=== PATIENT | female | born 1940 ===

== ENCOUNTER 2018-10-24 06:43 | Inpatient (IN) | payer OTHER ==
[2018-10-24] VITALS (15 sets, daily range): BP systolic 97–148; BP diastolic 56–83
[~2018-10-24] VITALS: Ht 162.6 cm; Wt 63.5 kg
[2018-10-24] MEDS ORDERED: ceFAZolin sod 2 GM in D5W 110 ML IVPB ONE (07:00)
[2018-10-24] MEDS ORDERED: Vancomycin 1gm vial IVPB ONE (07:13)
[2018-10-24] MEDS ORDERED: Bacitracin 50000 Units Vial ONE (07:14)
[2018-10-24] MEDS ORDERED: Bupivacaine w/Epi 0.5% 30ml Vial INJ ONE (07:14)
[2018-10-24] MEDS ORDERED: Gelfoam Size TOPIC ONE (07:14)
[2018-10-24] MEDS ORDERED: Thrombin 5000 units TOPIC ONE (07:14)
[2018-10-24] MEDS ORDERED: Metoclopramide 10mg/2ml Inj IVP PRN ×2 (07:15→07:30)
[2018-10-24] MEDS ORDERED: Acetaminophen (Non formulary) 100 ML IV ONE (07:15)
[2018-10-24] MEDS ORDERED: fentaNYL 100 mcg/2 mL IV PRN (07:15)
[2018-10-24] MEDS ORDERED: HYDROcodone/Acetamin 7.5/325 tab ORAL PRN ×3 (07:15→07:30)
[2018-10-24] MEDS ORDERED: Ketorolac 30mg Inj IV PRN ×2 (07:15)
[2018-10-24] MEDS ORDERED: DiphenhydrAMINE 50mg/ml Inj IVP PRN (07:15)
[2018-10-24] MEDS ORDERED: Meperidine 50mg/ml Inj(FOR RIGORS ONLY) IVP PRN (07:15)
[2018-10-24] MEDS ORDERED: Labetalol 5mg/ml 20ml vial IV PRN (07:15)
[2018-10-24] MEDS ORDERED: Atropine Sulfate 0.4mg/ml inj IVP PRN (07:15)
[2018-10-24] MEDS ORDERED: LR 1000ml 1,000 ML IVLG SCH (07:15)
[2018-10-24] MEDS ORDERED: Hydromorphone 0.5mg/0.5ml inj IVP PRN (07:15)
[2018-10-24] MEDS ORDERED: HYDROcodone/Acetamin 5/325 tab ORAL PRN ×2 (07:15→07:30)
[2018-10-24] MEDS ORDERED: LORazepam Inj 2mg/ml 1ml IV PRN (07:15)
[2018-10-24] MEDS ORDERED: oxyCODONE HCL/Acetaminophen 5/325mg ORAL PRN (07:15)
[2018-10-24] MEDS ORDERED: Midazolam 2mg/2ml Inj IVP PRN (07:15)
--- NOTE | 2018-10-24 07:17 | Immediate Post-Op Evaluation ---
Immediate Post-Op Evalulation Immediate Post-Op Evalulation Procedure: ACDF C5-6, C6-7 Date of Evaluation: Oct 24, 2018 Time of Evaluation: 10:17 IV Fluids: 700 Blood Products: 0 Estimated Blood Loss: 30 Urinary Output: 0 Blood Pressure Systolic: 147 Blood Pressure Diastolic: 79 Pulse Rate: 73 Respiratory Rate: 16 O2 Sat by Pulse Oximetry: 100 Temperature (Fahrenheit): 97.8 Pain Score (1-10): 2 Nausea: No Vomiting: No Complications 0 Patient Status: awake, reacts, patent, extubated, none Hydration Status: adequate Dru Grams Ancef IV Given Within 1 Hr of Incision: Yes Time Given: 08:01 Ramon Shah MD Oct 24, 2018 07:17
[2018-10-24] MEDS ORDERED: Zemuron 50mg/5ml Inj IV ONE (07:19)
--- NOTE | 2018-10-24 07:20 | Pre-Procedure Note/Attestation ---
Pre-Procedure Note/Attestation Complete Prior to Procedure Planned Procedure: not applicable Procedure Narrative: Anterior Discectomy and Fusion of C56,67 Indications for Procedure Pre-Operative Diagnosis: Herniation C56,67 Attestation I attest that I discussed the nature of the procedure; its benefits; risks and complications; and alternatives (and the risks and benefits of such alternatives ), prior to the procedure, with the patient (or the patient's legal branch sales and service representative). I attest that, if there was a reasonable possibility of needing a blood transfusion, the patient (or the patient's legal branch sales and service representative) was given the [facility] standardized written summary, pursuant to the Edilberto Pound Blood Safety Act ([place] Health and Safety Code # 1645, as amended). I attest that I re-evaluated the patient just prior to the surgery and that there has been no change in the patient's H&P, except as documented below: Osbaldo Basurto MD Oct 24, 2018 07:20
[2018-10-24] MEDS ORDERED: VENTOLIN HFA18 GM INH (07:22)
[2018-10-24] MEDS ORDERED: BREO ELLIPTA 21 EACH IH (07:22)
[2018-10-24] MEDS ORDERED: ELLIPTA (07:22)
[2018-10-24] MEDS ORDERED: Lidocaine 1% Plain 30 ml INJ ONE (07:24)
--- NOTE | 2018-10-24 07:25 | Brief Operative Note ---
Immediate Post Operative Note Operative Note Chief Complaint: Neck pain and radiculopathy Pre-op Diagnosis: Herniation C56,67 Procedure: Anterior Cervical discectomy and fusion of C56,67 Post-op Diagnosis: same as pre-op Findings: consistent w/pre-op dx studies Surgeon: Sherine Social Work Lecturer: Clarence Anesthesiologist: Anesthesia: general Specimen: none Complications: none Condition: stable Fluids: IVF Implant(s) used?: Yes - Nuvasive interlock c sz 6x2 screws 13x6 Osbaldo Basurto MD Oct 24, 2018 07:25
[2018-10-24] MEDS ORDERED: Milk of Magnesia 30ml Ud ORAL PRN (07:30)
[2018-10-24] MEDS ORDERED: Propofol 1,000mg/ 100ml btl IV ONE (07:30)
[2018-10-24] MEDS ORDERED: Morphine Sulfate 4mg/ml Inj (IV USE ONLY) IV PRN ×2 (07:30)
[2018-10-24] MEDS ORDERED: Naloxone 0.4mg/ml Inj IVP PRN (07:30)
[2018-10-24] MEDS ORDERED: Sterile Water Irrig 1000ml IRRIG ONE (07:30)
[2018-10-24] MEDS ORDERED: LR 1000ml ONE (07:30)
[2018-10-24] MEDS ORDERED: Chloraseptic Spray 20mL Bottle ORAL PRN (07:30)
[2018-10-24] MEDS ORDERED: Morphine Sulfate 2mg/ml Inj(IV/IM USE ONLY) IV PRN (07:30)
[2018-10-24] MEDS ORDERED: HYDROmorphone 1mg/ml Carpuject IVP PRN (07:30)
[2018-10-24] MEDS ORDERED: NS Irrig 1000ml ONE (07:30)
[2018-10-24] MEDS ORDERED: Sodium Chloride 10ml vial INJ ONE (07:32)
[2018-10-24] MEDS ORDERED: Lidocaine 1% MPF 10mg/ml 5ml ONE (07:32)
--- NOTE | 2018-10-24 07:50 | Anethesia Preoperative Eval ---
Anesthesia Pre-op PMH/ROS General Date of Evaluation: Oct 24, 2018 Time of Evaluation: 07:36 Anesthesiologist: Alyssa ASA Score: ASA 2 Mallampati Score Class I : Soft palate, uvula, fauces, pillars visible Class II: Soft palate, uvula, fauces visible Class III: Soft palate, base of uvula visible Class IV: Only hard plate visible Mallampati Classification: Class II Surgeon: Sherine Diagnosis: Neck Pain Surgical Procedure: ACDF C5-6, C6-7 Anesthesia History: none Family History: no anesthesia problems Allergies: Coded Allergies: No Known Allergies (Unverified , 10/21/18) Medications: see eMAR Patient NPO?: Yes NPO Date: Oct 23, 2018 NPO Time: 1800 Past Medical History Cardiovascular: Reports: HTN Pulmonary: Reports: asthma PSxH Narrative: R IH Repair Anesthesia Pre-op Phys. Exam Physician Exam Last Vital Signs Date Time Temp Pulse Resp B/P (MAP) Pulse Ox O2 Delivery O2 Flow Rate FiO2 10/24/18 07:30 97.9 77 20 134/75 (94) 96 10/24/18 07:22 Room Air Constitutional: NAD Neurologic: CN 2-12 intact Cardiovascular: RRR Respiratory: CTA Gastrointestinal: S/NT/ND Airway Exam Mallampati Score: Class II MO: limited ROM: limited Teeth: missing Dentures: upper, lower Anesthesia Pre-op A/P Risk Assessment & Plan Assessment: ASA 2 Plan: GA, SED, GlideScope Go Status Change Before Surgery: No Pre-Antibiotics Dru Grams Ancef IV Given Within 1 Hr of Incision: Yes Time Given: 08:01 Ramon Shah MD Oct 24, 2018 07:50
[2018-10-24] MEDS ORDERED: Neostigmine 1mg/ml 10ml Inj ONE (09:31)
[2018-10-24] MEDS ORDERED: Glycopyrrolate 0.2mg/ml 1ml Vial ONE (09:31)
--- NOTE | 2018-10-24 11:20 | NUR ---
NURSE NOTES: PATIENT ARRIVED FROM PACU ON BED WITH FAMILY PRESENT.PATIENT AOX4.ANTERIOR NECK SURGICAL SITE C/D/SHELLY. SHERIFF CATHETER PATENT AND SECURED TO LEG.PT. ABLE TO SWALLOW W/O DIFFICULTY. BEDSIDE REPORT RECEIVED. DISCUSSED PLAN OF CARE FOR THE DAY. QUESTIONS ANSWERED, NEEDS MET AT THIS TIME. ORIENTED TO ROOM. CALL LIGHT WITHIN REACH. DISCUSSED PLAN OF CARE FOR THE DAY.VERBALIZED UNDERSTANDING.WILL CONTINUE TO MONITOR.
[2018-10-24] MEDS: NS w/KCl 20mEq 1000ml 1,000 ML IV SCH ×2 (13:05→23:33)
--- NOTE | 2018-10-24 13:15 | Operative Note - Dictated ---
DATE OF OPERATION: 10/24/2018 SURGEON: Osbaldo Basurto M.D., Orthopedic Spine Surgeon. DIGITAL LEARNING PLATFORMS MANAGER: Angel Lima M.D. PREOPERATIVE DIAGNOSES: 1. Intractable neck pain. 2. Radiculopathy. 3. Herniation, C5-C6 and C6-C7. 4. Neural foraminal stenosis, C5-C6 and C6-C7. 5. Stenosis. POSTOPERATIVE DIAGNOSES: 1. Intractable neck pain. 2. Radiculopathy. 3. Herniation, C5-C6 and C6-C7. 4. Neural foraminal stenosis, C5-C6 and C6-C7. 5. Stenosis. PROCEDURE PERFORMED: 1. Anterior cervical discectomy and fusion of C5-C6 using NuVasive Interlock C with three screws of 13 mm and 1 mL of Osteocel allograft bone. 2. Anterior cervical discectomy and fusion of C6-C7 using NuVasive Interlock C with three screws of 13 mm and 1 mL of Osteocel allograft bone. 3. Use of intraoperative microscope. 4. Motor evoked potential monitoring. 5. Somatosensory evoked potential monitoring. 6. Supervision and interpretation of fluoroscopy. COMPLICATIONS: None. ANESTHESIA: General. ESTIMATED BLOOD LOSS: Less than 100 mL. INDICATIONS FOR SURGERY: This patient is a 77-year-old female, who has a history of intractable neck pain, radiculopathy, herniation, C5-C6 and C6-C7, neural foraminal stenosis, C5-C6 and C6-C7, and stenosis. We tried a course of conservative management but despite this course there was still a significant component of persistent, recalcitrant neck pain and arm pain. The MRI demonstrated significant neural foraminal compromise secondary to disc herniations at C5-C6 and C6-C7. We had a long discussion with Vitalia regarding the risks and benefits of surgery. Our discussion included but was not limited to nonoperative management, chiropractic management, another epidural steroid injection as well definitive management in the form of surgery. We recommended anterior cervical discectomy and fusion of C5-C6 and C6-C7 as final definitive management. We reviewed the risks and benefits of surgery with the patient. Our discussion included a comprehensive review of the clinical issues and the nature of the clinical decision. We reviewed the alternatives, including doing nothing. The patient elected to proceed accordingly with an artificial cervical discectomy and fusion of C5-C6 and anterior cervical discectomy and fusion of C6-C7. We had a long discussion regarding the risks, alternatives and benefits of surgery. Our description of the risks included a discussion in person as well as a signed consent which detailed all pertinent risks from the procedure itself. Briefly, our discussion included but was not limited to infection, bleeding, pseudarthrosis, spinal cord injury, neurovascular injury, dural tear, CSF leak, neuropathy, paralysis, permanent weakness/drop foot/drop arm, paresthesias, blindness, palsy and weakness. The patient understood there may be a need for a revision surgery or additional procedures. Approach-related complications including dysphonia, dysphagia, blindness, permanent vocal cord and neural injury, hematoma, swallowing and breathing difficulty. Medical complications were reviewed including liver, kidney, shock, cardiopulmonary failure, anesthesia complications including , swelling, damage to the musculature, larynx/voice injury or loss, esophagus/throat, trachea, blood vessels and muscles/muscular sprain and lungs/pneumothorax during this surgical procedure; injury to deeper structures may be temporary or permanent. After this review of risks, the patient understood these and elected to proceed. A written and verbal consent was given. We discussed the pros and cons of all the alternatives. We discussed the uncertainties associated with the decision. Afterwards I assessed the patient's understanding and explored their preferences. All questions were answered and no guarantees were given. Medical clearance was obtained prior to surgery. INTRAOPERATIVE FINDINGS: At C5-C6, there was a collapsed disc space, a herniated nucleus pulposus, which was visualized through a tear in the posterior longitudinal ligament. This tear was approximately 20 degrees in a cephalad to caudad direction in the PLL. Once probed with a Microsect 1-B, there was evidence of herniated nucleus pulposus posterior to the PLL, which was causing encroachment on the thecal sac, spinal cord, and neural foraminal elements left-sided. This disc was soft in character. It was not calcified. There were no posterior bony spurs. At C6-C7, there was decrease in the disc space. There was a tear noted in the PLL, posterior longitudinal ligament. The disc itself was soft and the disc itself was not calcified. In the PLL, there was a tear noted, which was approximately 30 degrees in a cephalad to caudad direction. This tear was left-sided in the PLL and this was probed with Microsect I-B curette. Posterior to the tear, there was a soft nuclear tissue. This was not calcified or hardened. The soft nuclear tissue was encroaching on the thecal sac and spinal cord. DESCRIPTION OF PROCEDURE: Under the benefit of general endotracheal anesthesia and with the assistance of the entire operative team, the patient was moved from the rney onto the operative table in the supine position. The head was secured and carefully positioned appropriately. Bilateral arms were secured with Gel Pads and foam and all bony prominences were padded. For the bilateral lower extremities SCD and IAN hose were placed for DVT prophylaxis. A surgical timeout was called which corroborated our planned procedure of artificial cervical discectomy and fusion of C5-C6 and anterior cervical discectomy and fusion of C6-C7. Preoperative antibiotics were administered within 30 minutes of the incision for antibiotic prophylaxis. Using lateral fluoroscopic radiography, the operative levels were delineated. Next the wound was prepped and draped with Chlorhexidine and sterile drapes. An incision was based on lateral fluoroscopy and we centered our incision at the C5-C6 and C6-C7 interspace and next using a standard Fisher-Zarate anterior based approach the incision was taken down through the skin and subcutaneous tissues until the vertebral bodies and their corresponding disc spaces were visualized. A needle was placed into the interspace to confirm placement of the operative interspace and we performed the remainder of procedure under microscopic visualization. Next, using a bipolar and Bovie cautery to ensure meticulous hemostasis, the longus colli was mobilized bilaterally and retractors were placed deep to the longus colli bilaterally to address retraction. Next, we turned our attention to the radical anterior discectomy. This was initially performed at C5-C6. First by using a 15 blade scalpel followed by narrow pituitaries and a Microsect 5-B curette was used to denude the endplate of all cartilaginous tissue. Next, using a [employer] AM8 drillbit the vertebral endplates were removed in a [id number] and layer by layer fashion, and ultimately the posterior uncinate joints bilaterally and posterior osteophytic lips and margins causing central and lateral impingement were carefully denuded until visualization of the posterior longitudinal ligament was possible. An endplate preparation was performed in the exact same fashion using an intervertebral freight flow sales leader, sequential distraction was obtained throughout the disc space. We saw a tear/rent in the PLL and this was carefully mobilized and dissected using a micro-set 1-B curet until we visualized a broad-based disc herniation with compression of the spinal cord as well as neural foramina left-sided. This neural foraminal compression was carefully resected using a Kerrison-1 and Kerrison-2 rongeurs until complete decompression of the spinal cord was visualized and complete decompression of the neural foramina and nerve root therein as well as the axilla and lateral margin of the nerve root was visualized and subsequently completely decompressed. The family was notified at one hour intervals throughout the procedure to provide for consistent updates. Next, we turned our attention to the radical anterior discectomy. This was initially performed at C6-C7. First by using a 15 blade scalpel followed by narrow pituitaries and a Microsect 5-B curette was used to denude the endplate of all cartilaginous tissue. Next, using a [employer] AM8 drillbit the vertebral endplates were removed in a [id number] and layer by layer fashion, and ultimately the posterior uncinate joints bilaterally and posterior osteophytic lips and margins causing central and lateral impingement were carefully denuded until visualization of the posterior longitudinal ligament was possible. An endplate preparation was performed in the exact same fashion using an intervertebral freight flow sales leader, sequential distraction was obtained throughout the disc space. We saw a tear/rent in the PLL and this was carefully mobilized and dissected using a micro-set 1-B curet until we visualized a broad-based disc herniation with compression of the spinal cord as well as neural foramina left-sided. This neural foraminal compression was carefully resected using a Kerrison-1 and Kerrison-2 rongeurs until complete decompression of the spinal cord was visualized and complete decompression of the neural foramina and nerve root therein as well as the axilla and lateral margin of the nerve root was visualized and subsequently completely decompressed. We next turned our attention towards trialing our implant within the disc space. We initially tried size 5 and size 6 trial at C5-C6 from the NuLUMO Bodytech Interlock system at each level, which appeared to be appropriate under AP and lateral fluoroscopy as well as in terms of its height, depth, width, and lack of toggle. The PEEK (polyetheretherketone) interbody cages were then both packed with allograft bone from Osteocel and local autograft bone matrix. Next, these were then carefully advanced and secured into their intervertebral spaces under direct visualization and with supervision of AP and lateral fluoroscopic views. We next turned our attention towards plating. At C5-C6, plating was performed with NuVasive Interlock-C plating system. A total of three screws, size 13 mm in length were inserted and confirmed under AP and lateral fluoroscopy and confirmed to be in excellent position. We next turned our attention towards trialing our implant within the disc space of C67. We initially tried size 5 and afterwards size 6 trial from the NuVasive Interlock system at each level, which appeared to be appropriate under AP and lateral fluoroscopy as well as in terms of its height, depth, width and lack of toggle. The PEEK polyetheretherketone interbody cages were then both packed with allograft bone from Osteocel and local autograft bone matrix. Next these were then carefully advanced and secured into their intervertebral spaces under direct visualization and with supervision of AP and lateral fluoroscopic views.This was then performed at the next level C6-C7. Plating was performed with NuVasive interlock-C plating system. A total of three screws, size 13 mm in length were inserted and confirmed under AP and lateral fluoroscopy and confirmed to be in excellent position. After a finger sweep we confirmed removal of all sponges. The retractor was removed and we next turned our attention to meticulous hemostasis with FloSeal and bipolar cautery. After the sponge and needle count was again found to be correct with our second count, we next turned our attention to closure. The wound was again copiously irrigated with antibiotic impregnated saline. Closure consisted of 4-0 clear nylon for the platysma, and 6-0 clear nylon for the superficial skin. Final skin closure and dressings consisted of Dermabond. Prior to final closure, a final radiograph was obtained which demonstrated the hardware is intact with excellent position throughout. The patient tolerated the procedure well. The patient was carefully extubated after the conclusion of surgery. We discussed the findings of the surgery with the family upon completion of the case. At this point the patient was transferred to the spine floor for further observation. Osbaldo Basurto M.D. DR: TAYLOR JOB#: [id number] CC: ANNMARIE
--- NOTE | 2018-10-24 14:00 | NUR ---
PT EVALUATION NOTE Patient seen for initial evaluation, see complete evaluation for details,daughter present for translation. Patient presents with pain and impaired functional mobility with decreased knowledge of cervical precautions s/p cervical surgery. Patient requires min assist for bed mobility, transfers and ambulation. Patient will benefit from skilled inpatient PT intervention to address balance, safety and functional mobility, and to educate patient in cervical precautions. Recommend discharge home with family assistance as needed once medically cleared by MD. No DME needs anticipated at this time. Addendum: 10/24/18 at 1448 by MYA CONKLIN PT Amended: Links added.
--- NOTE | 2018-10-24 15:30 | NUR ---
NURSE NOTES: PATIENT DOING VERY WELL. SEEN BY PFercho AND AMBULATED. GAIT STEADY. PAIN CONTROLLED WHILE TAKING NORCO. TOLERATING CERVICAL DIET.VSS. AFEBRILE
[2018-10-24] MEDS: ceFAZolin sod 1 GM in D5W 55 ML IV SCH ×2 (16:10→23:33)
--- NOTE | 2018-10-24 16:30 | NUR ---
CASE MANAGEMENT:REVIEW 77 YR OLD MALE HERE FOR ELECTIVE SURGERY SI: NECK PAIN AND RADICULOPATHY 97.9 77 20 134/75 96% ON RA IS: TO SURGERY FOR: ANTERIOR CERVICAL DISCECTOMY AND FUSION C56,67 IV DECADRON Q6HRS IV ANCEF Q8HRS IVF+KCL@100/HR IV DILAUDID PRN : TO MED/SURG POST OP
--- NOTE | 2018-10-24 16:39 | Diagnostic Imaging Report ---
INDICATION: Pain, intraoperative TECHNIQUE: Intraoperative imaging Fluoroscopy time: I 0.2 seconds Total dose: 6 0.40518 mGym2 Total number of images: 6 4 COMPARISON: None FINDINGS: Intraoperative images demonstrate surgical to overlying the inferior C6 vertebral body. Subsequent images demonstrate surgical tube projected at the anterior aspect of the C5-6 disc. Subsequent images demonstrate anterior fusion hardware bridging 5 6 and C6-7. IMPRESSION: Intraoperative imaging, as described
[2018-10-24] MEDS: Dexamethasone 4mg/ml vial IVP SCH ×2 (17:34→23:35)
[2018-10-24] MEDS: Docusate 100mg cap ORAL SCH (17:34)
--- NOTE | 2018-10-24 19:02 | NUR ---
HAND-OFF: Report given to YULY CORONADO.
--- NOTE | 2018-10-24 19:20 | NUR ---
NURSE NOTES: Report taken from MICHEL Null. patient is awake and in bed, family at bedside. A&Ox4. No signs of distress on room air. Having minimal complaint of pain at incision site and posterior cervical, 06/02. Surgical site c/d/i and open to air. IV site c/d/i and patent running NS+20KCl at 100/hr. Chan c/d/i and draining yellow urine. No skin issues present. Bed in lowest position, call light within reach.
--- NOTE | 2018-10-24 20:05 | Cardiology Progress Note ---
Assessment/Plan Assessment/Plan interstitil lung dz abnoral ekg with neg mpi hs of asthma doign well post op hhn dvt ppx ambualtion home soon [id number] Objective Last 24 Hour Vital Signs Date Time Temp Pulse Resp B/P (MAP) Pulse Ox O2 Delivery O2 Flow Rate FiO2 10/24/18 17:59 97.8 64 15 112/71 (85) 98 10/24/18 16:00 97.3 82 15 97/56 (70) 98 10/24/18 15:33 97.5 69 15 110/57 (74) 96 10/24/18 14:00 98.9 72 16 112/65 (81) 97 10/24/18 13:01 98.9 72 16 112/65 (81) 97 10/24/18 12:24 98.1 10/24/18 12:00 98.1 70 15 125/81 (96) 99 10/24/18 11:31 97.4 72 20 135/63 (87) 99 10/24/18 11:30 Nasal Cannula 3.0 10/24/18 11:00 97.4 65 17 134/63 100 Nasal Cannula 3 10/24/18 10:45 66 18 126/65 100 Nasal Cannula 3 10/24/18 10:30 70 16 143/77 100 Nasal Cannula 3 10/24/18 10:20 68 15 148/83 100 Nasal Cannula 3 10/24/18 10:10 70 14 137/78 100 Simple Mask 6 10/24/18 10:06 97.8 73 16 147/79 100 Simple Mask 6 10/24/18 10:04 73 16 100 10/24/18 07:30 97.9 77 20 134/75 (94) 96 10/24/18 07:22 Room Air Tu Le MD Oct 24, 2018 20:05
[2018-10-24] MEDS ORDERED: Albuterol/Ipratropium 3ml neb HHN SCH (20:15)
[2018-10-24] MEDS: Albuterol ud Inhalation HHN SCH (20:55)
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
[2018-10-25] VITALS: BP_SYST 105; BP_SYST 95; BP_DIAS 44; BP_DIAS 58
[2018-10-25] MEDS: Albuterol ud Inhalation HHN SCH ×2 (01:18→07:01)
[2018-10-25 04:00] VITALS: BP 97/46
[2018-10-25 06:00] VITALS: BP 97/46
[2018-10-25] MEDS: Dexamethasone 4mg/ml vial IVP SCH (06:08)
--- NOTE | 2018-10-25 07:13 | NUR ---
HAND-OFF: Report given to MICHEL Noonan. Patient awake, VS stable.
--- NOTE | 2018-10-25 07:15 | NUR ---
NURSE NOTES: Received report from MICHEL Kennedy. Pt is awake, receiving breathing treatments. Pt denies any pain at the moment. Chan patent and draining well. Will continue to monitor.
[2018-10-25] MEDS: ceFAZolin sod 1 GM in D5W 55 ML IV SCH (07:51)
[2018-10-25 08:00] VITALS: BP 112/52
--- NOTE | 2018-10-25 08:54 | NUR ---
NURSE NOTES: Called Dr. Basurto's office. Left message for him asking if we may DC nelson. Will await return call.
[2018-10-25] MEDS ORDERED: Breo Ellipta 200/25mcg-14 dose INH SCH (09:00)
[2018-10-25] MEDS: NS w/KCl 20mEq 1000ml 1,000 ML IV SCH (09:15)
[2018-10-25] MEDS: Docusate 100mg cap ORAL SCH (09:15)
--- NOTE | 2018-10-25 09:55 | NUR ---
NURSE NOTES: Rocio FLOOD'cindy per MD order. Will continue to monitor.
--- NOTE | 2018-10-25 10:38 | NUR ---
NURSE NOTES: Pt was able to void. She states that she had no difficulty and no pain. Urine is yellow with no odor. Pt states she is ready to go home.
[2018-10-25] MEDS ORDERED: Tubing IV Secondary IV ONE (10:59)
--- NOTE | 2018-10-25 11:00 | NUR ---
NURSE NOTES: Patient was discharged per MD orders. IV and ID band removed. Belongings accounted for. Signed belongings list is in chart. Pt stable at time of discharge.
--- NOTE | 2018-10-25 15:30 | Discharge Summary ---
DATE OF ADMISSION: 10/24/2018 DATE OF DISCHARGE: 10/25/2018 PROCEDURE PERFORMED DURING ADMISSION: Anterior cervical discectomy and fusion of C5-C6 and C6-C7. REASON FOR ADMISSION: Herniation, C5-C6 and C6-C7. HOSPITAL COURSE/TREATMENT RENDERED: DISCHARGE PHYSICAL EXAMINATION: 1. The patient was ambulating with and without the assistance of physical therapy. 2. Prior to discharge home, incision was clean and dry with minimal swelling. 3. Follows commands. 4. Alert and oriented. 5. Chan discontinued, voiding. 6. Incentive spirometer at bedside. 7. IVF hep locked. MOTOR: Demonstrates expected postoperative bulk and tone. Moves biceps, triceps, and deltoid musculature on command. Moves hip flexors, quadriceps, tibialis anterior, EHL, gastrocsoleus musculature on command as well. TREATMENT RENDERED: 1. Daily nursing care. 2. Physical Therapy. 3. Occupational Therapy. 4. Intravenous medications. 5. Oral medications. 6. Daily postoperative examinations by Spine Surgery team. CONDITION OF PATIENT ON DISCHARGE: The condition on discharge is stable for discharge to home. DISCHARGE INSTRUCTIONS: Our specific instructions relating to physical activity, medications, diet, and followup care are detailed in our standard operative folder and were given to this patient prior to surgery. We will however summarize these briefly as stated below. Regarding physical activity, we would like the patient to limit their flexion, extension, and rotation. We also require a limitation on their bending, lifting, and twisting. All medication has been called in prior to surgery to their pharmacy of choice. They can resume their regular diet once tolerated. We would like them to shower and limit soaking the wound in a tub/Jacuzzi/the ocean for a period of one month or until the incision is completely healed. We will have them follow up in our office in three weeks time for their regularly scheduled appointment. They understand to call our office tomorrow to schedule the time for their three-week followup appointment. The patient will notify us should they experience any increase in the severity of pain, redness/swelling/ or drainage from their incision. Osbaldo Basurto M.D. DR: GINETTE/AMBAR JOB#: [id number] CC:
== END 2018-10-25 11:00 | disposition home or self-care (01) | DRG 472 ==
LOC: SDSOVERFLO 06:43 → 3E 11:20
DX: M50.222 Other cervical disc displacement at C5-C6 level (principal); J84.9 Interstitial pulmonary disease, unspecified; E78.5 Hyperlipidemia, unspecified; J45.909 Unspecified asthma, uncomplicated; M48.02 Spinal stenosis, cervical region
CPT/HCPCS: 36415; 72040; 76000; 86850; 86900; 86901; 87081; 94003; 94150; 94640; J2250; J2405; J2710; J2765